=== PATIENT | female | born 1955 | race Caucasian/White ===

== ENCOUNTER → 2017-02-27 | Outpatient (CLI) | payer OTHER | LOC: CIMAGING 15:21 | PROVIDERS: ATTEND Internal Medicine | DX: R05 Cough (principal); R53.83 Other fatigue | CPT/HCPCS: 71020-PO ==

== ENCOUNTER 2017-05-12 23:22 | Emergency (ER) | payer OTHER ==
[2017-05-12 23:34] LABS: COLOR YELLOW; LEUKOCYTE ESTERASE,URINE 2+ (NEGATIVE); NITRITE,URINE NEGATIVE (NEGATIVE); PH,URINE 7.5 (5.0-7.5)
[2017-05-12 23:39] VITALS: BP 130/82; PULSE 94; RESP 18; TEMP 97.7; O2SAT 95
[2017-05-12 23:42] LABS: BACTERIA TRACE /hpf (NONE SEEN); RBC,URINE 50-182 /hpf (0-3); WBC,URINE 25-50 /hpf (0-3)
--- NOTE | 2017-05-12 23:47 | EDPHY ---
H & P Stated Complaint: c/o pain, burning, frequency with urination, started today Time Seen by Provider: 05/12/17 23:33 HPI/ROS: Chief Complaint: Urinary symptoms HPI: 61-year-old woman presenting with urinary urgency frequency and hematuria which started today. She has some discomfort with urination. Some mild low back pain. No fevers or chills. No nausea or vomiting. Does have a history of urinary tract infections in the past and this feels similar. Some mild lower abdominal pain. ROS: 10 point Review of Systems is negative except as noted in the HPI. PMH: Gastroparesis, dysautonomia, fibromyalgia, chronic fatigue, migraine headaches Social History: No smoking, no alcohol, uses medical marijuana Family History: non-contributory Physical Exam: Gen: Awake, Alert, No Distress HEENT: Nose: no rhinorrhea Eyes: PERRLA, EOMI Mouth: Moist mucosa Neck: Supple, no JVD Abd: Soft, non-tender, no guarding Back: no CVA tenderness, no midline tenderness Ext: no edema, non-tender Skin: no rash Neuro: CN II-XII intact, Sensation grossly intact, Strength 5/5 in bilateral upper and lower extremities - Personal History Current Tetanus Diphtheria and Acellular Pertussis (TDAP): Yes - Medical/Surgical History Hx Asthma: No Hx Chronic Respiratory Disease: No Hx Diabetes: No Hx Cardiac Disease: No Hx Renal Disease: No Hx Cirrhosis: No Hx Alcoholism: No Hx HIV/AIDS: No Hx Splenectomy or Spleen Trauma: No Other PMH: fibromyalgia, gastroparesis, dysautonomia - Social History Smoking Status: Never smoked Constitutional: Initial Vital Signs Temperature (C) 36.5 C 05/12/17 23:35 Heart Rate 94 05/12/17 23:35 Respiratory Rate 18 05/12/17 23:35 Blood Pressure 130/82 H 05/12/17 23:35 O2 Sat (%) 95 05/12/17 23:35 O2 Delivery Mode Room Air Allergies/Adverse Reactions: azithromycin [From Zithromax] Allergy (Verified 05/12/17 23:33) ciprofloxacin [From Cipro] Allergy (Verified 05/12/17 23:33) Penicillins Allergy (Verified 05/12/17 23:33) tramadol Allergy (Verified 05/12/17 23:33) narcotics Allergy (Uncoded 05/12/17 23:33) Home Medications: Medication Instructions Recorded NK [No Known Home Meds] 05/12/17 Medical Decision Making ED Course/Re-evaluation: Urinalysis is consistent with UTI. Will start on Macrobid and Pyridium. She will follow up with primary care physician in 4-5 days if symptoms are not improving. - Data Points Laboratory Results: 05/12/17 23:32 Urine Color YELLOW Urine Appearance CLEAR Urine pH 7.5 (5.0-7.5) Ur Specific [place] 1.010 (1.002-1.030) Urine Protein 2+ H (NEGATIVE) Urine Ketones NEGATIVE (NEGATIVE) Urine Blood 3+ H (NEGATIVE) Urine Nitrate NEGATIVE (NEGATIVE) Urine Bilirubin NEGATIVE (NEGATIVE) Urine Urobilinogen 0.2 EU EU (0.2-1.0) Ur Leukocyte Esterase 2+ H (NEGATIVE) Urine RBC 50-182 /hpf H /hpf (0-3) Urine WBC 25-50 /hpf H /hpf (0-3) Ur Epithelial Cells TRACE /lpf /lpf (NONE-1+) Urine Bacteria TRACE /hpf H /hpf (NONE SEEN) Urine Glucose NEGATIVE (NEGATIVE) Departure - Departure Disposition: Home, Routine, Self-Care Clinical Impression: Urinary tract infection Condition: Good Instructions: Urinary Tract Infection in Women (ED), Nitrofurantoin Combination (By mouth), Phenazopyridine (By mouth) Additional Instructions: Please take your full course of antibiotics. Follow up with your primary care physician in 4-5 days if symptoms are not improving. Return to the emergency department for increasing pain, fevers, chills, nausea, vomiting, or any other concerns. Referrals: Patient,NotPresent [Primary Care Provider] - As per Instructions
[2017-05-12] MEDS ORDERED: NITROFURANTOIN 100MG PREPACK#2 BTL TAKEHOME ONE (23:48)
[2017-05-12] MEDS ORDERED: PHENAZOPYRIDINE HCL 200 MG TAB PO ONE (23:48)
== END 2017-05-12 23:55 | disposition home or self-care (01) ==
LOC: CED 23:22
DX: N39.0 Urinary tract infection, site not specified (principal); B96.89 Other specified bacterial agents as the cause of diseases classified elsewhere
CPT/HCPCS: 81003-PO; 81015-PO

== ENCOUNTER → 2018-10-01 | Outpatient (CLI) | payer OTHER | LOC: CIMAGING 10:06 | PROVIDERS: ATTEND Internal Medicine | DX: R10.11 Right upper quadrant pain (principal); Z87.442 Personal history of urinary calculi; N20.0 Calculus of kidney | CPT/HCPCS: 76700-PO ==